=== PATIENT | female | born 1935 ===

== ENCOUNTER 2018-01-02 08:21 | Day surgery (SDC) | payer MEDICAID ==
[2018-01-02 09:23] VITALS: BMI 17.7
[2018-01-02] MEDS ORDERED: Lactated Ringer's 500 ML IV ONE (09:25)
[2018-01-02] MEDS ORDERED: Propofol 10 mg/ml Inj (20 ML) ONE (10:59)
[2018-01-02 11:22] VITALS: TEMP 97
[2018-01-02 11:38] VITALS: BP 105/53; PULSE 50; RESP 16; O2SAT 100
== END 2018-01-02 14:09 | disposition home or self-care (01) ==
LOC: H.ENDO 08:21
PROVIDERS: ATTEND Internal Medicine Gastroenterology
DX: R10.13 Epigastric pain (principal); Z85.3 Personal history of malignant neoplasm of breast; K44.9 Diaphragmatic hernia without obstruction or gangrene; K29.40 Chronic atrophic gastritis without bleeding; K29.50 Unspecified chronic gastritis without bleeding
CPT/HCPCS: 43239; 88305; J2001; J2704; J7120

== ENCOUNTER 2018-08-21 08:32 | Day surgery (SDC) | payer MEDICAID ==
[2018-08-21 10:37] VITALS: BMI 18.3
[2018-08-21] MEDS ORDERED: Lactated Ringer's 500 ML IV ONE (10:39)
[2018-08-21 10:59] VITALS: O2SAT 100
[2018-08-21] MEDS ORDERED: Propofol 10 mg/ml Inj (20 ML) ONE (11:54)
[2018-08-21] MEDS ORDERED: Midazolam 2 MG/2 ML VIAL ONE (11:54)
[2018-08-21] MEDS ORDERED: Etomidate 20 mg/10ml Inj IV ONE (11:54)
[2018-08-21] MEDS ORDERED: ePHEDrine 50 mg/ml Inj ONE (12:22)
[2018-08-21 12:28] VITALS: RESP 15
[2018-08-21 12:48] VITALS: BP 110/43; PULSE 61; TEMP 97.8
== END 2018-08-21 13:36 | disposition home or self-care (01) ==
LOC: H.ENDO 08:32
PROVIDERS: ATTEND Internal Medicine Gastroenterology
DX: R10.84 Generalized abdominal pain (principal); Z85.3 Personal history of malignant neoplasm of breast; K64.8 Other hemorrhoids
CPT/HCPCS: 45378; J2001; J2250; J2704; J7120